=== PATIENT | female | born 1970 | race Caucasian/White ===

== ENCOUNTER 2019-04-25 14:48 | Outpatient (CLI) | payer BC, SELFPAY ==
--- NOTE | 2019-04-25 15:21 | XR_ITS ---
WS: [id number] CHEST 2 VIEWS HISTORY: COUGH COMPARISON: 01/13/2016 Lungs: Clear with no abnormality. No pleural effusion or pneumothorax. Cardiac size: Normal. Mediastinum/Aorta: Normal mediastinum. Bones: Normal. XR/XR chest 2V* [id number] IMPRESSION: Normal chest.
== END 2019-04-25 14:49 | disposition home or self-care (01) ==
LOC: RADWPI 14:54
PROVIDERS: Family Provider Family Medicine; PCP Family Medicine; Visit Provider Family Medicine
DX: R05 Cough (principal)
CPT/HCPCS: 71046

== ENCOUNTER 2019-10-26 06:50 | Outpatient (CLI) | payer BC, SELFPAY ==
--- NOTE | 2019-10-26 14:21 | PFTS_ITS ---
Date of Study:10/26/19 Date of Dictation: MECHANICS: Forced vital capacity (FVC) is normal. Forced expiratory volume in one second (FEV1) is mildly reduced. FEV1/FVC is reduced. FLOW VOLUME LOOP: Reduced flow at all lung volumes with scooping. LUNG VOLUMES: Not performed DIFFUSING CAPACITY FOR CARBON MONOXIDE: Not performed INTERPRETATION: The prebronchodilator spirometry is consistent with moderate obstruction. The post bronchodilator spirometry is consistent with moderate obstruction as well. There is a significant postbronchodilator response with a 35% increase in FEV1. This would be very consistent with a diagnosis of asthma. In the presence of significant history of smoking, there could be a component of asthma COPD overlap. MTDD
== END 2019-10-26 06:51 | disposition home or self-care (01) ==
PROVIDERS: PCP Family Medicine; Visit Provider Nurse Practitioner Family
DX: R05 Cough (principal); Z87.891 Personal history of nicotine dependence
CPT/HCPCS: 94060; J7611

== ENCOUNTER 2020-02-15 08:10 | Outpatient (CLI) | payer BC, SELFPAY ==
--- NOTE | 2020-02-15 08:18 | MM_ITS ---
WS: [id number] Bilateral screening digital mammogram, 02/15/2020 Clinical Data: SCREENING Comparison: 10/04/2018, 01/28/2017, 02/03/2013, 03/16/2006. Findings: The breast parenchymal pattern shows genus density No spiculated masses or clustered calcifications a re seen. There are no secondary signs of carcinoma. MM/[id number] Impression: 1. Negative bilateral mammogram unchanged. 2. Recommend annual screening mammograms. BIRADS: 1-Negative FOLLOW UP: 1 Year Follow-up The CAD blast furnace checker was used.
== END 2020-02-15 08:11 | disposition home or self-care (01) ==
LOC: RADSHAW 08:13
PROVIDERS: PCP Family Medicine; Visit Provider Nurse Practitioner Family
DX: Z12.31 Encounter for screening mammogram for malignant neoplasm of breast (principal)
CPT/HCPCS: 77067

== ENCOUNTER 2020-07-27 08:45 | Emergency (ER) | payer BC, SELFPAY ==
[2020-07-27 08:50] VITALS: BP 175/104; PULSE 95; RESP 18; TEMP 36.3; O2SAT 97; BMI 30.4
--- NOTE | 2020-07-27 08:59 | ECG_ITS ---
[facility] Test Date: 2020-07-27 Pat Name: Bri Funes Department: Room: Gender: Female City Administrator: : 1970 Requested By: Hans Blue Order Number: [id number] Hermann MD: Eli Woods M.D. Measurements Intervals [place] Rate: 94 P: 66 AR: 133 QRS: 21 QRSD: 109 T: 28 QT: 341 QTc: 427 Interpretive Statements SINUS RHYTHM POSSIBLE LEFT ATRIAL ENLARGEMENT [-0.1mV P WAVE IN V1/V2] POSSIBLE LEFT VENTRICULAR HYPERTROPHY [VOLTAGE CRITERIA PLUS LAE OR QRS WIDENING] NONSPECIFIC T-WAVE ABNORMALITY Compared to ECG 01/13/2016 19:31:44 No significant changes Electronically Signed On 07-28-2020 5:19:24 CDT by Eli Woods M.D. [email or web address]
--- NOTE | 2020-07-27 08:59 | XR_ITS ---
WS: [id number] Portable AP upright chest, 07/27/2020 Clinical Data: chest pain Comparison: PA and lateral chest, 04/25/2019. Findings: No nodules, masses or effusions are seen. The heart is normal. The pulmonary vascularity is not increased. No pneumonia or pneumothorax is seen. Monitor leads are on the chest wall. XR/XR chest 1V portable [id number] Impression: Negative chest.
[2020-07-27] MEDS: aspirin 81 mg Chew Tablet 324 MG PO (09:14)
[2020-07-27 09:17] LABS: Basophils # 0.1 10^3/uL (0.0-0.1); Basophils % 0.8 %; Eosinophils # 0.5 10^3/uL (0.0-0.8); Eosinophils % 6.2 %; Hematocrit 42.9 % (37.0-47.0); Hemoglobin 13.6 g/dL (11.5-15.3); Mean Corpuscular HGB Conc 31.7 g/dL (30.0-36.0); Mean Corpuscular Hemoglobin 27.6 pg (28.0-34.0); Mean Platelet Volume 9.6 fL (7.4-10.4); Monocytes # 0.7 10^3/uL (0.2-0.9); Monocytes % 9.4 %; Neutrophils # 4.11 10^3/uL (1.8-7.7); Neutrophils % 56.5 %; Nucleated Red Blood Cells % 0 %; Platelet Count 247 10^3/cmm (130-400); Red Blood Count 4.93 10^6/uL (4.1-5.3); Red Cell Distribution Width 12.4 % (12.1-15.1); White Blood Count 7.3 10^3/uL (4.0-10.0)
--- NOTE | 2020-07-27 09:27 | ED_ITS ---
HPI - Chest Pain General: Chief Complaint: Chest Pain Stated Complaint: CP Time Seen by Provider: 07/27/20 08:51 History of Present Illness: HPI narrative: 50-year-old female presents emergency room with mild chest pain began around 3:00 this morning. Left-sided chest pain stabbing and radiating into the scapular area. She had it earlier this week she was seen by her PCP and then a chiropractor. She was seen by the chiropractor about 4 to 5 days ago returned again 2 days ago. This morning she began having pain at about 3 AM with shortness of breath and diaphoresis she also checked her blood pressure and it was elevated. She took one of her mother's sublingual nitros with no relief. She did have a stress test about 2 years ago that was reported to her to be normal. The time I seen the patient she is essentially pain-free. MD complaint: chest pain and chest discomfort Onset (ago): day(s) Timing of current episode: episodic Prior episodes: Yes Onset: during rest Pain location: left chest Pain radiation: back Quality: heaviness Relieving factors: nothing Exacerbating factors: nothing Associated symptoms: Deny abdominal pain, diaphoresis, dyspnea, fever(s), leg edema, nausea, palpitations, sense of impending doom, syncope or vomiting Treatment prior to arrival: none Review of Systems Const: Denies: fever(s) or diaphoresis ENMT: Denies: throat pain, ear or mastoid pain, nasal discharge or nasal congestion Card: Denies: palpitations or syncope Resp: Denies: dyspnea GI: Denies: abdominal pain, nausea or vomiting : Denies: flank pain, difficulty voiding, dysuria, urinary frequency or urinary urgency Skin/Breast: Denies: rash or pruritus Physical Exam Const: COMMON NORMALS: no acute distress GENERAL APPEARANCE: cooperative and comfortable ORIENTATION/CONSCIOUSNESS: Yes awake, Yes oriented to person, Yes oriented to place and Yes oriented to time HENMT: COMMON NORMALS: normocephalic, atraumatic and hearing grossly normal bilaterally HEAD & SCALP: normocephalic and atraumatic Neck/C-Spine: COMMON NORMALS: no JVD Resp: COMMON NORMALS: normal respiratory effort, No retractions, No use of accessory muscles and clear to auscultation bilaterally AUSCULTATION: clear to auscultation bilaterally Cardio: COMMON NORMALS: no JVD, regular rate, regular rhythm and No murmurs present (Cardio) RATE: regular rate RHYTHM: regular rhythm GI: COMMON NORMALS: Soft to palpation and No hepatosplenomegaly present A USCULTATION: Yes normoactive bowel sounds PALPATION: Yes Soft to palpation, No Tenderness to palpation present (GI), No Guarding due to palpation present (GI) and Yes No hepatosplenomegaly present Extremity: COMMON NORMALS: normal to inspection, capillary refill normal, no clubbing, cyanosis or edema, no calf tenderness and no pedal edema Neuro: SENSORIUM/ORIENTATION: Yes oriented to person, Yes oriented to place and Yes oriented to time Skin: COMMON NORMALS: no rashes or lesions noted GENERAL SKIN EXAM: no rashes or lesions noted Course Vital Signs: Vital signs: Vital Signs Temperature 97.3 F L 07/27/20 08:50 Pulse Rate 88 07/27/20 12:21 Respiratory Rate 15 07/27/20 12:21 Blood Pressure 175/98 07/27/20 12:21 Pulse Oximetry 97 07/27/20 12:21 MDM - Chest Pain MDM Narrative: Medical decision making narrative: Tums completely resolved. We will go and discharge home or take aspirin daily return if she has further problems also started on amlodipine for pretension. radiology services manager will make arrangements for the patient to have a treadmill stress test Lab Data: Labs: Lab Results 07/27/20 07/27/20 07/27/20 Range/Units 09:11 09:11 09:11 WBC 7.3 (4.0-10.0) 10^3/ uL RBC 4.93 (4.1-5.3) 10^6/u L Hgb 13.6 (11.5-15.3) g/dL Hct 42.9 (37.0-47.0) % MCV 87.0 (81-99) fL MCH 27.6 L (28.0-34.0) pg MCHC 31.7 (30.0-36.0) g/dL RDW 12.4 (12.1-15.1) % Plt Count 247 (130-400) 10^3/c mm MPV 9.6 (7.4-10.4) fL Neut % (Auto) 56.5 % Lymph % (Auto) 27.0 % [place] % (Auto) 9.4 % Eos % (Auto) 6.2 % Baso % (Auto) 0.8 % Neut # (Auto) 4.11 (1.8-7.7) 10^3/u L Lymph # (Auto) 2.0 (0.8-4.8) 10^3/u L [place] # (Auto) 0.7 (0.2-0.9) 10^3/u L Eos # (Auto) 0.5 (0.0-0.8) 10^3/u L Baso # (Auto) 0.1 (0.0-0.1) 10^3/u L Nucleated RBC % (a uto) 0 % Nucleated RBCs # 0.0 /100WBC Sodium 139 (136-145) mmol/L Potassium 4.0 (3.5-5.1) mmol/L Chloride 103 (98-107) mmol/L Carbon Dioxide 26 (22-29) mmol/L Anion Gap 14.0 (5-19) BUN 15 (6-20) mg/dL Creatinine 0.7 (0.5-0.9) mg/dL GFR Calculation 88.6 L (90-130) mL/min Glucose 97 (65-115) mg/dL Calculated Osmolal ity 289 (285-295) mOsm/k g Calcium 9.3 (8.5-10.5) mg/dL Total Bilirubin 0.2 (0.15-1.2) mg/dL AST 15 (0-32) U/L ALT 18 (0-33) U/L Alkaline Phosphata se 98 (35-105) IU/L Troponin T Baselin e 6 (0-10) ng/L Troponin T 120 Min habematolel (0-10) ng/L Delta Troponin T (0-10) ABS# Total Protein 7.4 (6.6-8.7) g/dL Albumin 4.4 (3.5-5.2) g/dL Globulin 3.0 (1.3-4.6) g/dL 07/27/20 Range/Units 10:56 WBC (4.0-10.0) 10^3/ uL RBC (4.1-5.3) 10^6/u L Hgb (11.5-15.3) g/dL Hct (37.0-47.0) % MCV (81-99) fL MCH (28.0-34.0) pg MCHC (30.0-36.0) g/dL RDW (12.1-15.1) % Plt Count (130-400) 10^3/c mm MPV (7.4-10.4) fL Neut % (Auto) % Lymph % (Auto) % [place] % (Auto) % Eos % (Auto) % Baso % (Auto) % Neut # (Auto) (1.8-7.7) 10^3/u L Lymph # (Auto) (0.8-4.8) 10^3/u L [place] # (Auto) (0.2-0.9) 10^3/u L Eos # (Auto) (0.0-0.8) 10^3/u L Baso # (Auto) (0.0-0.1) 10^3/u L Nucleated RBC % (a uto) % Nucleated RBCs # /100WBC Sodium (136-145) mmol/L Potassium (3.5-5.1) mmol/L Chloride (98-107) mmol/L Carbon Dioxide (22-29) mmol/L Anion Gap (5-19) BUN (6-20) mg/dL Creatinine (0.5-0.9) mg/dL GFR Calculation (90-130) mL/min Glucose (65-115) mg/dL Calculated Osmolal ity (285-295) mOsm/k g Calcium (8.5-10.5) mg/dL Total Bilirubin (0.15-1.2) mg/dL AST (0-32) U/L ALT (0-33) U/L Alkaline Phosphata se (35-105) IU/L Troponin T Baselin e (0-10) ng/L Troponin T 120 Min habematolel 6.00 (0-10) ng/L Delta Troponin T 0 (0-10) ABS# Total Protein (6.6-8.7) g/dL Albumin (3.5-5.2) g/dL Globulin (1.3-4.6) g/dL Discharge Plan Discharge Patient Disposition: Home Clinical Impression: Atypical chest pain, HTN (hypertension) Condition: Stable Prescriptions: New hydrocodone-acetaminophen 5-325 mg tablet 1 tab PO Q6H PRN (Reason: pain) Qty: 10 RF: 0 aspirin 81 mg tablet,delayed release (DR/EC) 81 mg PO DAILY Qty: 30 RF: 0 amlodipine 5 mg tablet 2.5 mg PO DAILY Qty: 14 RF: 0 No Action Percocet 7.5-325 mg tablet 1 tab PO Q6H PRN (Reason: pain) Qty: 10 RF: 0 Medrol (Ehsan) 4 mg tablets,dose pack See Rx Instructions .ROUTE .COMPLEX Qty: 21 RF: 0 Discharge Orders: Discharge ED (Routine); Ordered 07/27/20 Ordered By: Hans Connor Referrals: Dayron Crane DO [Primary Care Provider] - Discharge Diet: Usual diet Discharge Activity: Limit activity as instructed Patient Instructions: Opioid Safety Activity Restrictions/Additional Instructions: Case management will call to make arrangements for a cardiac stress test. Coding Level of Care Code ED Display Designer for Taras Fwd Exam Comprehensive
[2020-07-27 09:35] LABS: Alanine Aminotransferase 18 U/L (0-33); Albumin Level 4.4 g/dL (3.5-5.2); Alkaline Phosphatase 98 IU/L (35-105); Aspartate Amino Transferase 15 U/L (0-32); Blood Urea Nitrogen 15 mg/dL (6-20); Calcium 9.3 mg/dL (8.5-10.5); Carbon Dioxide 26 mmol/L (22-29); Chloride 103 mmol/L (98-107); Creatinine Clr Calc Pharmacy 113.2734; Glomerular Filtration Rate 88.6 mL/min (90-130); Glucose 97 mg/dL (65-115); Osmolality Calculated 289 mOsm/kg (285-295); Sodium 139 mmol/L (136-145); Total Bilirubin 0.2 mg/dL (0.15-1.2); Total Protein 7.4 g/dL (6.6-8.7)
[2020-07-27 09:37] LABS: Troponin(5th) Baseline 6 ng/L (0-10)
--- NOTE | 2020-07-27 10:59 | ECG_ITS ---
[facility] Test Date: 2020-07-27 Pat Name: Bri Funes Department: Room: Gender: Female Airway Controller: : 1970 Requested By: Hans Blue Order Number: [id number] Hermann MD: Eli Woods M.D. Measurements Intervals [place] Rate: 81 P: 61 LA: 138 QRS: 10 QRSD: 106 T: 45 QT: 380 QTc: 443 Interpretive Statements SINUS RHYTHM MODERATE INTRAVENTRICULAR CONDUCTION DELAY [105+ ms QRS DURATION, 80+ ms Q/S IN V1/V2, NO Q AND 60+ ms R IN I/aVL/V5/V6] MINIMAL VOLTAGE CRITERIA FOR LVH, CONSIDER NORMAL VARIANT [MEETS CRITERIA IN ONE OF: R(aVL), S(V1), R(V5), R(V5/V6)+S(V1)] NONSPECIFIC T-WAVE ABNORMALITY Compared to ECG 07/27/2020 08:55:56 Intraventricular conduction delay now present T-wave abnormality still present Electronically Signed On 07-28-2020 5:25:02 CDT by Eli Woods M.D. [email or web address]
[2020-07-27 11:32] LABS: Troponin 5 2HR Delta 0 ABS# (0-10)
[2020-07-27 11:37] VITALS: BP 175/98; PULSE 87; RESP 15; O2SAT 95
[2020-07-27 12:21] VITALS: BP 175/98; PULSE 88; RESP 15; O2SAT 97
== END 2020-07-27 12:22 | disposition home or self-care (01) ==
PROVIDERS: Emergency Provider Family Medicine; PCP Internal Medicine
DX: R07.89 Other chest pain (principal); I10 Essential (primary) hypertension
CPT/HCPCS: 71045; 80053; 84484; 85025; 93005; 99283

== ENCOUNTER 2020-07-29 00:38 | Emergency (ER) | payer BC, SELFPAY ==
[2020-07-29] VITALS (7 sets, daily range): BP systolic 165–177; BP diastolic 105–119; PULSE 72–98; RESP 15–17; TEMP 36.5; O2SAT 92–97; BMI 32.1
--- NOTE | 2020-07-29 01:24 | CTR_ITS ---
PROCEDURE INFORMATION: Exam: CT Cervical Spine Without Contrast Exam date and time: 07/29/2020 1:32 AM Age: 50 years old Clinical indication: Radicular pain (radiculopathy); Cervicothoracic region; Additional info: Left radicular pain TECHNIQUE: Imaging protocol: Computed tomography images of the cervical spine without contrast. Radiation optimization: All CT scans at this facility use at least one of these dose optimization techniques: automated exposure control; mA and/or kV adjustment per patient size (includes targeted exams where dose is matched to clinical indication); or iterative reconstruction. COMPARISON: No relevant prior studies available. RADIATION DOSE METRICS: Total DLP (mGy-cm): 907.75 FINDINGS: Vertebrae: The dens is intact. The lateral masses of C1 are symmetric. There is normal vertebral body alignment. There are normal vertebral body heights. No fracture. C2-C3: Small central disc protrusion with minimal canal stenosis but no foraminal stenosis. C3-C4: Broad-based disc protrusion and osteophyte formation result in mild canal stenosis and mild right neural foraminal stenosis. C4-C5: Minimal disc protrusion without significant canal or foraminal stenosis. C5-C6: Small central disc protrusion with minimal canal stenosis. No foraminal stenosis. C6-C7: Broad-based disc protrusion plus facet and endplate hypertrophy result in mild canal stenosis with mild bilateral foraminal narrowing. C7-T1: No canal stenosis. Facet hypertrophy mildly narrows the left neural foramen. Soft tissues: Unremarkable. Prevertebral Space: Atlantodental interval and prevertebral soft tissues are normal. Lungs: Lung apices are normal. Other findings: Craniocervical articulation is normal. CT/CT cervical spin wo con* [id number] IMPRESSION: Mild degenerative disc disease. No fracture. Radiation Dose CTDIVOL = (mGy): DLP = 907.75 (mGy-cm)
--- NOTE | 2020-07-29 01:24 | XRR_ITS ---
PROCEDURE INFORMATION: Exam: XR Left Shoulder Exam date and time: 07/29/2020 1:32 AM Age: 50 years old Clinical indication: Pain; Shoulder; Left; Additional info: L shoulder pain x 1 week TECHNIQUE: Imaging protocol: XR Left shoulder. Views: 2 or more views. COMPARISON: US SoftTissue/Extrem t [id number] 08/19/2017 3:27 PM FINDINGS: Bones/joints: No fracture. No dislocation. The acromioclavicular joint and glenohumeral joints are within normal limits. The acromiohumeral interval is normal. Soft tissues: No acute soft tissue abnormality. XR/XR shoulder LT min 2V* [id number] IMPRESSION: No acute osseous abnormality.
[2020-07-29] MEDS: ondansetron 2 mg/ML SDV 2 mL 4 MG IVP (01:51)
[2020-07-29] MEDS: HYDROmorphone 1 mg/mL INJ 1 mL IVP (01:53)
[2020-07-29] MEDS: ketorolac 30 mg/mL INJ IVP (01:56)
[2020-07-29 02:20] LABS: D Dimer 0.47 ug/mIFEU (0-0.59)
[2020-07-29] MEDS: dexamethasone 4 mg/mL INJ 8 MG IVP (03:43)
[2020-07-29] MEDS: HYDROmorphone 1 mg/mL INJ 1 mL 0.5 MG IVP (03:45)
--- NOTE | 2020-07-29 04:40 | W.ED.EXTPRO ---
HPI - Extremity Problem General: Chief complaint: Extremity Problem,Nontraumatic Stated complaint: left shoulder pain Time Seen by Provider: 07/29/20 01:05 History of Present Illness: HPI Narrative: 50-year-old female who was seen 2 days ago with left shoulder and left posterior chest pain. She was diagnosed with atypical chest pain after cardiac work-up which was negative. She continues to have left-sided shoulder pain, scapular pain, and left-sided pain at the base of her neck. She is in tears on exam. He states her blood pressure has been high, and is usually not high. She notes there is increased pain with neck movement. Associated symptoms: Deny chest pain or fever(s) Review of Systems Const: Denies: fever(s) or chills Card: Denies: chest pain or palpitations Resp: Denies: dyspnea, productive cough or non-productive cough GI: Denies: abdominal pain or vomiting Neuro: Denies: numbness in extremities Physical Exam Const: COMMON NORMALS: patient oriented x3 and alert GENERAL APPEARANCE: ill appearing and other (in pain) Chest: COMMONS NORMALS: normal inspection of the chest Resp: COMMON NORMALS: normal respiratory effort, No use of accessory muscles and clear to auscultation bilaterally AUSCULTATION: clear to auscultation bilaterally Cardio: COMMON NORMALS: regular rate and regular rhythm RATE: regular rate RHYTHM: regular rhythm Extremity: COMMON NORMALS: normal to inspection NARRATIVE EXTREMITY EXAM: Exam the left shoulder reveals tenderness over the rotator cuff footprint. There is some suprascapular notch tenderness as well. No deformity. Range of motion is intact, but painful. There is some cervical paraspinal tenderness. No midline tenderness. Spurling's test is negative. Neuro: COMMON NORMALS: patient oriented x3 SENSORIUM/ORIENTATION: Yes alert Skin: COMMON NORMALS: no rashes or lesions noted GENERAL SKIN EXAM: no rashes or lesions noted Course Vital Signs: Vital signs: Vital Signs Temperature 97.7 F 07/29/20 04:00 Pulse Rate 72 07/29/20 04:00 Respiratory Rate 15 07/29/20 04:00 Blood Pressure 177/109 07/29/20 04:00 Pulse Oximetry 95 07/29/20 04:00 MDM - Extremity (Nontraumatic) MDM Narrative: Medical decision making narrative: Patient had excellent pain relief with Dilaudid and Toradol. CT shows a broad-based disc protrusion plus facet hypertrophy at C6-C7 with some foraminal narrowing. Left shoulder x-ray is negative. This may be a radiculopathy. It could be a suprascapular nerve entrapment, although there is some radicular pain into the upper extremity as well. D-dimer is drawn and is negative. This would speak against pulmonary embolism and carotid or vertebral dissection. Lab Data: Labs: Lab Results 07/29/20 Range/Units 01:58 D-Dimer 0.47 (0-0.59) ug/mIFE U Discharge Plan Discharge Patient Disposition: Home Clinical Impression: Neuritis, Acute pain of right shoulder Condition: Stable Prescriptions: New Percocet 7.5-325 mg tablet 1 tab PO Q6H PRN (Reason: pain) Qty: 10 RF: 0 Medrol (Ehsan) 4 mg tablets,dose pack See Rx Instructions .ROUTE .COMPLEX Qty: 21 RF: 0 No Action hydrocodone-acetaminophen 5-325 mg tablet 1 tab PO Q6H PRN (Reason: pain) Qty: 10 RF: 0 aspirin 81 mg tablet,delayed release (DR/EC) 81 mg PO DAILY Qty: 30 RF: 0 amlodipine 5 mg tablet 2.5 mg PO DAILY Qty: 14 RF: 0 Discharge Orders: Discharge ED (Routine); Ordered 07/29/20 Ordered By: Winston Pacheco Referrals: Dayron Crane DO [Primary Care Provider] - 1-3 days Patient Instructions: Shoulder Sprain (ED), Cervical Radiculopathy (ED), Opioid Safety Activity Restrictions/Additional Instructions: Return for fever, worsening pain despite treatment, shortness of breath, any other concerning symptoms. Coding Level of Care Code ED Robotics Technologist for Taras Iqbal
== END 2020-07-29 04:05 | disposition home or self-care (01) ==
PROVIDERS: Emergency Provider Emergency Medicine; PCP Internal Medicine
DX: M79.2 Neuralgia and neuritis, unspecified (principal); Z79.82 Long term (current) use of aspirin; M25.511 Pain in right shoulder
CPT/HCPCS: 72125; 73030; 85378; 96374; 96375; 96376; 99284; J1100; J1170; J1885; J2405

== ENCOUNTER → 2021-01-14 00:01 | Outpatient (BNVA) | payer BC, SELFPAY | PROVIDERS: PCP Internal Medicine; Visit Provider Obstetrics & Gynecology | DX: R32 Unspecified urinary incontinence (principal) | CPT/HCPCS: 87086 ==

== ENCOUNTER 2021-02-06 10:44 | Outpatient (CLI) | payer BC, SELFPAY ==
--- NOTE | 2021-02-06 10:50 | CT_ITS ---
WS: [id number] LDCT LUNG CANCER SCREENING TECHNIQUE: Noncontrast CT of the chest with coronal and sagittal reformatted images. CLINICAL INFORMATION: HX OF TOBACCO USE COMPARISON: None. DLP: 51.02 mGy.cm DIvol: 1.[address] scans at [facility] use at least one of these dose optimization techniques: automat ed exposure control; mA and/or kV adjustment per patient size (includes targeted exams where dose is matched to clinical indication); or iterative reconstruction. FINDINGS: No acute pulmonary infiltrates. No focal pneumonia or pleural fluid. No suspicious pulmonary parenchy mal opacities. No mediastinal or hilar lymphadenopathy. Normal GE junction. Adrenal glands appear normal. No axillary lymphadenopathy. Normal thoracic spine. CT/CT lung screening [id number] IMPRESSION: LUNG-RADS: 1-Negative FOLLOW UP: 12 Month: Continue annual screening with LDCT
== END 2021-02-06 10:45 | disposition home or self-care (01) ==
PROVIDERS: PCP Internal Medicine; Visit Provider Internal Medicine
DX: Z12.2 Encounter for screening for malignant neoplasm of respiratory organs (principal); Z87.891 Personal history of nicotine dependence
CPT/HCPCS: 71271

== ENCOUNTER → 2021-02-16 14:33 | Outpatient (BNVA) | payer BC, SELFPAY | PROVIDERS: PCP Internal Medicine; Visit Provider Registered Nurse Neonatal Intensive Care | DX: Z20.822 Contact with and (suspected) exposure to COVID-19 (principal); N39.3 Stress incontinence (female) (male); N81.10 Cystocele, unspecified; N81.6 Rectocele | CPT/HCPCS: 87635 ==

== ENCOUNTER 2021-02-20 10:11 | Observation (INO) | payer BC, SELFPAY ==
[2021-02-18 13:36] VITALS: BMI 31.9
--- NOTE | 2021-02-18 14:36 | P.ANESASSM_ITS ---
Pre-Anesthetic Assessment Pre-Anesthetic Assessment: Height/Weight: Height 1.73 m Weight 95.254 kg Proposed Procedure: Operation Date: 02/20/21 08:25 Proposed Procedures p Anterior Repair Anterior Colporrhaphy [id number] 25860 N81.10 N81.6 N39.3(Not Applicable) - MD lizz José Posterior Repair(Not Applicable) - Vini Erickson MD s Sling(Not Applicable) - Vini Erickson MD Was Beta Vannessa taken within 24 hours: N/A Was Clonidine taken within 24 hours: N/A Social: Social History: No alcohol and No tobacco Exam: Pre-Anes Outpt Exam: alert, oriented x 3, clear to auscultation bi laterally and regular rate & rhythm Airway: Submandibular: WNL Cervical ROM: WNL MP: 2 Dentition: Full CV/HEM: CV/HEM: HTN Metabolic: Metabolic: Morbid obesity Anesthetic Plan: ASA status: 2 Anesthesia: General Risk of > 500 ml blood loss (7ml/kg in children): No PFSH Anesthesia PFSH: Medical History [place]-Walker grade 2 cystocele Urinary, incontinence, stress female Family History Mother Cancer Breast cancer Diabetes Hyperlipidemia Hypertension Lung disease COPD Grandmother Cancer Maternal - Colon cancer Hypertension Grandfather Cancer Maternal - Prostate cancer CAD (coronary artery disease) Paternal Hypertension Lung disease COPD Stroke Maternal Father Hypertension Lung disease COPD Denies family history of Clotting disorder Dementia Psychiatric illness Chronic kidney disease (CKD) Suicide Anesthesia complication Bleeding disorder Female Reproductive History: Date of last menstrual period: 02/15/14 Data Anesthesia Cardiac Studies: No Data to Display
[2021-02-20] VITALS (11 sets, daily range): BP systolic 112–140; BP diastolic 68–88; PULSE 63–89; RESP 11–18; TEMP 36.2–36.8; O2SAT 91–97
[2021-02-20 07:50] LABS: Add Urine Microscopic? NO; Charge for UA Resulting for Rev
[2021-02-20] MEDS: scopolamine 1.5 Patch 1 PATCH TRANSDERMA (07:53)
[2021-02-20] MEDS: sodium chloride 0.9% 500 ML IV (07:54)
--- NOTE | 2021-02-20 07:57 | P.ANESUD_ITS ---
Pre-Anesthetic Update Pre-Anesthetic Assessment: Date of Surgery/Procedure: 02/20/21 Preop Mercedes gnosis: Cystocele stage 2, rectocele, stress urinary incontinence Proposed Procedure: Operation Date: 02/20/21 08:25 Proposed Procedures p Anterior Repair Anterior Colporrhaphy [id number] 51810 N81.10 N81.6 N39.3(Not Applicable) - Vini Erickson MD s Posterior Repair(Not Applicable) - Vini Erickson MD s Sling(Not Applicable) - Vini Erickson MD Any changes to Pre-Anesthetic Assessment?: No Vitals: Temperature 98.1 F 02/20/21 07:32 Temperature Source Temporal Artery S can 02/20/21 07:32 Pulse Rate 86 02/20/21 07:32 Respiratory Rate 18 02/20/21 07:32 Blood Pressure 140/88 02/20/21 07:32 Blood Pressure Nicky n 105 02/20/21 07:32 Pulse Oximetry 96 02/20/21 07:32 Oxygen Delivery Me thod 02/20/21 07:32 Exam: Pre-Anes Outpt Exam: alert, oriented x 3, clear to auscultation bilaterally and regular rate & rhythm Cardiac Studies: No Data to Display
[2021-02-20 08:09] LABS: Bilirubin Urine Neg (Negative); Blood Urine Neg (Negative); Glucose Urine UA Norm (Normal); Ketones Urine Negative (Negative); Leukocyte Esterase Urine Negative (Negative); Nitrate Urine Negative (Negative); Protein Urine Neg (Negative); Specific Gravity, Urine 1.015 (1.005-1.030); Urine Appearance Clear (CLEAR); Urine Color Yellow (Yellow); Urobilinogen Urine Norm (Negative); pH Urine 5 (5-7)
[2021-02-20] MEDS: sodium chloride 0.9% 1,000 ML 30 ML IV (08:13)
[2021-02-20 08:21] LABS: Alanine Aminotransferase 11 U/L (0-33); Albumin Level 4.2 g/dL (3.5-5.2); Alkaline Phosphatase 98 IU/L (35-105); Anion Gap 17.1 (5-19); Aspartate Amino Transferase 11 U/L (0-32); Basophils # 0.1 10^3/uL (0.0-0.1); Basophils % 0.8 %; Blood Urea Nitrogen 13 mg/dL (6-20); Calcium 8.8 mg/dL (8.5-10.5); Carbon Dioxide 22 mmol/L (22-29); Chloride 106 mmol/L (98-107); Eosinophils # 0.4 10^3/uL (0.0-0.8); Eosinophils % 5.6 %; Glomerular Filtration Rate 88.2 mL/min (90-130); Glucose 96 mg/dL (65-115); Hematocrit 40.5 % (37.0-47.0); Lymphocytes # 2.1 10^3/uL (0.8-4.8); Lymphocytes % 28.9 %; Mean Corpuscular HGB Conc 32.1 g/dL (30.0-36.0); Mean Corpuscular Volume 87.3 fl (81-99); Mean Platelet Volume 10.5 fL (7.4-10.4); Monocytes # 0.6 10^3/uL (0.2-0.9); Neutrophils # 4.14 10^3/uL (1.8-7.7); Neutrophils % 56.4 %; Nucleated Red Blood Cells % 0 %; Osmolality Calculated 292 mOsm/kg (285-295); Platelet Count 247 10^3/cmm (130-400); Potassium 4.1 mmol/L (3.5-5.1); Red Blood Count 4.64 10^6/uL (4.1-5.3); Red Cell Distribution Width 12.6 % (12.1-15.1); Sodium 141 mmol/L (136-145); Total Bilirubin 0.4 mg/dL (0.15-1.2); Total Protein 7.2 g/dL (6.6-8.7); White Blood Count 7.3 10^3/uL (4.0-10.0)
--- NOTE | 2021-02-20 08:26 | W.PM.OPSUD ---
Surgery/Procedure H&P Update DATE OF PROCEDURE: February 20, 2021 DATE H&P PERFORMED: 02/18/21 H&P UPDATE INFORMATION: I have reviewed H&P completed within last 30 days, I have examined patient prior to procedure and No changes to prior documentation PREOP DIAGNOSIS: Cystocele stage 2, rectocele, stress urinary incontinence PLANNED PROCEDURE: Operation Date: 02/20/21 08:25 Proposed Procedures p Anterior Repair Anterior Colporrhaphy [id number] 21292 N81.10 N81.6 N39.3(Not Applicable) - Vini Erickson MD s Posterior Repair(Not Applicable) - Vini Erickson MD s Sling(Not Applicable) - Vini Erickson MD
[2021-02-20] MEDS: estrogens Conjugated Cream 30 gm 1 APPLIC VAGINAL (10:09)
--- NOTE | 2021-02-20 10:40 | P.OP_ITS ---
Operative Report Date of procedure: February 20, 2021 Pre-op Diagnosis: Cystocele stage 2, rectocele, stress urinary incontinence Post-op diagnosis: same Procedure Done: Anterior colporrhaphy augmented with allograft. Single incision mid urethral sling. Posterior colporrhaphy. Cystoscopy Implants: Coloplast \Altis single incision sling Pathology: none sent Surgeon: Vini Erickson MD Anesthesia: General Estimated blood loss (mL): 100 IV fluids (mL): 800 Urine output (mL): 200 Findings: None Condition: stable Disposition: PACU Procedure: After obtaining informed consent, the patient was taken to the operating room and placed in the supine position, given general anesthesia, and prepped and draped in sterile fashion. The abdomen, vulva and vagina were prepped and draped in a sterile manner. A time out procedure was performed. A vertical midline incision was made beneath the midurethra, nearly 1.5 cm length. Careful submucosal dissection was performed bilaterally up to the interior portion of the inferior pubic ramus. The insertion of adductor longus tendon on the patient?s pubic ramus was identified as reference land vero. Palpated the notch along the internal edge of ischiopubic ramus where the adductor longus tendon and the inferior pubic ramus meet. The Altis single incision sling (SIS) was selected. Then the needle of the SIS inserted aiming at the location of this notch. One of the integrated self-fixating tips place onto the needle by sliding it over the end of the needle. The needle/sling assembly was inserted toward the location of identified reference notch making sure that the flat of the handle is perpendicular to the desired path. The needle was tracked along the posterior surface of the ischiopubic ramus until the midline vero on the mesh is approximately at the midline position under the urethra. The needle was removed and the same was repeated on the contralateral side until the appropriate sling tension under the urethra was achieved ensuring that the mesh lays flat. The needle was removed and vaginal incision was closed in a running interlocking fashion with 2-0 Vicryl. The vaginal mucosa was then injected in the midline with normal saline. The vaginal mucosa was scored in the midline with the Bovie approximately 1 cm medi al to the urethral meatus to 1 cm distal to the vaginal cuff. This vaginal mucosa was then undermined and then incised in the midline with the Metzenbaum scissors. The lateral aspects of the vaginal mucosa were then grasped with the Allis clamps and the vaginal mucosa was then dissected off the underlying fascia with the Metzenbaum scissors. Again, there was noted to be quite a bit of oozing at the incision, which was controlled with cautery. After adequate dissection was performed, bilaterally. A Coloplast allograft was modified at time of application to fit spacea, 3x3 cm piece . The Coloplast allograft placed in front of cystocele and suture is placed at distal end of graft and placed towards vaginal cuff. Final suture is placed on proximal portion of the graft to complete the placement overlying the bladder. Then Interrupted vertical mattress sutures of 0 Vicryl were used to elevate the cystocele superiorly. The excessive vaginal mucosa was then trimmed with the Metzenbaum scissors and the vaginal mucosa was then reapproximated in the running interlocking fashion with 2-0 Vicryl. A posterior repair was performed next. An incision was made across the introitus. Metzenbaum scissors were used to tunnel beneath posterior vaginal mucosa until the apex of the rectocele bulge was reached. At this point, the rectum was from the posterior vaginal mucosa using sharp and blunt dissection, and the rectal bulge imbricated in the midline with interrupted sutures of 2-0 vicryl suture. Levator ani muscles on either side were approximated in the midline with interrupted 0 Vicryl sutures. Excess posterior vaginal mucosa was excised, and the vaginal episiotomy was repaired by approximating the posterior vaginal mucosa with a suture of Vicryl #0. Then the Puente catheter was removed and cystoscope was inserted. The bladder was filled with sterile water. Complete evaluation of the bladder mucosa was performed noting no lacerations, dimpling, tears, bleeding of the mucosa or muscular layers. Both ureteral orifices were identified. Prompt excretion of urine from both ureteral orifices was noted. Cystoscope was withdrawn. The Puente catheter was replaced. Excellent hemostasis was obtained. A vaginal pack is placed overnight as postoperative support for the vaginal tissues after graft placement and closure of vaginal incisions. Sponge, lap, needle, and instrument counts were correct times three. The patient was taken to the recovery room, awake and in stable condition.
--- NOTE | 2021-02-20 11:14 | PC.NURSE ---
Patient arrived from PACU at this time
[2021-02-20] MEDS: dextrose 5%-lactated ringers 1,000 ML 125 ML IV ×2 (11:49→18:29)
[2021-02-20] MEDS: acetaminophen 325 mg Tablet 650 MG PO (12:29)
--- NOTE | 2021-02-20 14:51 | ANE.PACU2 ---
Inpatient post-anesthesia follow up: Airway intact: Yes Vital signs: Temperature 97.6 F Pulse Rate 63 Respiratory Rate 18 Blood Pressure 123/78 Pulse Oximetry 96 Oxygen Delivery Me thod Room Air Oxygen Flow Rate Fraction of Inspir ed Oxygen Hydration adequate: Yes Nausea and vomiting: No Pain level: 2 Mental status: Baseline
[2021-02-20] MEDS: ketorolac 30 mg/mL INJ IVP ×2 (15:05→21:29)
--- NOTE | 2021-02-20 17:23 | PC.NURSE ---
Patient stood up from chair to ambulate to bathroom and noted to have moderate amount of blue tinged fluid come out from around her perineum. Fluid examined and noted to be urine. Patient then to bathroom and stood up and noted to have same thing happen again.
[2021-02-20] MEDS: docusate sodium 100 mg Capsule PO (18:29)
[2021-02-21] MEDS: HYDROcodone-acetaminophen 5-325 mg Tablet PO (04:24)
[2021-02-21 04:36] VITALS: BP 118/74; PULSE 63; RESP 14; O2SAT 95
[2021-02-21 04:55] LABS: Hematocrit 32.7 % (37.0-47.0); Hemoglobin 10.6 g/dL (11.5-15.3); Mean Corpuscular HGB Conc 32.4 g/dL (30.0-36.0); Mean Corpuscular Hemoglobin 28.6 pg (28.0-34.0); Mean Corpuscular Volume 88.4 fl (81-99); Mean Platelet Volume 10.2 fL (7.4-10.4); Platelet Count 205 10^3/cmm (130-400); Red Cell Distribution Width 12.6 % (12.1-15.1)
--- NOTE | 2021-02-21 06:55 | PC.NURSE ---
Post void residual completed at 0600. Pt voided 400ml. Residual was 30ml per bladder scan
--- NOTE | 2021-02-21 09:40 | P.DS_ITS ---
Discharge Providers CLINICAL INTERVIEWER Date of Admission: 02/20/21 10:11 Date of Discharge: 02/21/21 Attending Provider at Admission: Vini Erickson MD Attending Provider at Discharge: Vini Erickson MD Primary Care Provider: Dayron Crane DO Reason for Visit Reason for Visit: anterior colporrhapy Hospital Course Hospital Course .: 54-year-old cystocele rectocele associated with urinary incontinence. Was admitted for planned anterior colporrhaphy augmented with allograft, single incision mid urethral sling, and posterior colporrhaphy. The procedures were performed without complication. Overnight observation was uneventful. She is afebrile and hemodynamically stable postoperative day 1. Tolerating diet well. Ambulating without difficulty. Pain well under control. She voided 300 mL and PVR was 30 mL. Physical Exam Narrative: EXAM NARRATIVE: GA: Alert and oriented ?3. HEENT: WNL. Heart: Regular rate and rhythm. Lungs: Clear to auscultation bilaterally. Abdomen: Bowel sounds present, nontender. ECHOCARDIOGRAPHY RADIOLOGY TECHNOLOGIST: Spotting. Extremities: No edema, no cyanosis, no calves pain. Urinary Catheter Management^: Latex Free: Cath Placed During This Visit: yes, but has since been removed by the nurse Reason for Continuing Indwelling Catheter: Decision to DC Catheter Urinary Catheter Date of Insertion: 02/20/21 Urinary Catheter Time of Insertion: 09:00 Date Urinary Catheter Removed: 02/21/21 Time Urinary Catheter Discontinued: 05:05 History History History 10 Term 6 Miscarriages/Ectopic 4 0 Living Children 6 Discharge Data Data Completed and Pending: Pending at discharge Category Date Time Status ES surgery / GI i mages Routine Exams 02/20/21 08:26 Taken Labs from last 24 hours 02/21/21 04:40 WBC 14.0 H RBC 3.70 L Hgb 10.6 L Hct 32.7 L MCV 88.4 MCH 28.6 MCHC 32.4 RDW 12.6 Plt Count 205 MPV 10.2 Vitals: Last Vital Signs Temp 98.2 F 02/20/21 21:38 Pulse 63 02/21/21 04:36 Resp 14 02/21/21 04:36 BP 118/74 02/21/21 04:36 Pulse Ox 95 02/21/21 04:36 Discharge Plan Discharge Patient Disposition: Home Condition: Stable Prescriptions: New ibuprofen 800 mg tablet 800 mg PO TID PRN (Reason: pain) Qty: 60 RF: 0 Colace 100 mg capsule 100 mg PO BID Qty: 30 RF: 0 acetaminophen 325 mg capsule 325 mg PO Q4H PRN (Reason: fever or pain) Qty: 60 RF: 0 Iron (ferrous sulfate) 325 mg (65 mg iron) tablet 325 mg PO BID Qty: 60 RF: 0 hydrocodone-acetaminophen 5-325 mg tablet 1 tab PO Q4H PRN (Reason: pain) Qty: 20 RF: 0 Continued amlodipine 5 mg tablet 5 mg PO DAILY RF: 0 Discharge Orders: Discharge Order (Routine); Ordered 02/21/21 Ordered By: Vini Erickson Referrals: Vini Erickson MD [Physician] - 2 weeks Discharge Diet: GI Soft and Soft Mechanical Discharge Activity: Increase activity as tolerated Patient Instructions: Opioid Safety Activity Restrictions/Additional Instructions: 1. Please call [facility] clinic on next working day to make your post-operative appointment in 2 weeks. 2. Please stay home until you come back to the clinic on first post-operative check up. 3. Please follow instructions on your medications CAREFULLY. 4. If you have abdominal incision, do not cover it unless dressing is necessary because of drainage. OK to shower, but avoid bath. Leave steri-strips until they fall off. If they are still on one week after surgery, you may remove them. 5. If you had vaginal surgery or vaginal repair, Dr. Erickson may instruct you to take SITZ bath. 6. Yellow, blood tinged odorous vaginal discharge is usually normal after hysterectomy or vaginal surgeries. 7. No sexual intercourse, tampons, or douches until you are completely released from the post-operative care. 8. Avoid constipation by eating right and maybe using some Metamucil or Milk of Magnesia. 9. All prescription refills are given during the working hours. Please do no wait till it runs out. Call the clinic at [phone] before your medication runs out. The clinic will get in touch with your doctor to prescribe medications if necessary. 10. Please remain within 40 mile radius from our hospital because emergencies do happen now and then during the post-operative period. 11. If you have stairs at home, take one step at a time slowly and minimize the number of trips. It helps to stay in one floor for the next few days. No lifting except what you can lift by one hand until you are released from the post-operative care. 12. Driving is discouraged until you are well healed if you a major surgery. It may be 3-4 weeks before you feel strong enough to drive. You should be able to turn and look through the rear window without pain and you should be able to push the brake pedal very hard without pain before you drive. No fast rules, but SAFETY should be your primary concern. DO NOT drive if you are on sedating medications such as narcotics (hydrocodone). 13. Call the clinic (during working hours) to make urgent appointment or go to the Emergency room, if any of the following occurs: i. Vaginal bleeding becomes heavy, more than a period. ii. Incision becomes red and sore, or drains pus. iii. Your temperature is over 100.4 or you have chill. iv. IV site becomes red and swollen (a little ``knot?? is usually OK) v. Persistent nausea and vomiting vi. Persistent constipation or diarrhea vii. Rash or allergic reaction to medications. Discharge Attestations CLINICAL INTERVIEWER Time Spent in Discharge Care*: greater than 30 min Coding Level of Care Code Acute Crime Data Specialist for Taras Iqbal
[2021-02-21] MEDS: pneumococcal (23 valent) SDV 0.5 mL IM (10:34)
[2021-02-21 10:43] VITALS: BP 136/78; PULSE 72; RESP 16; TEMP 36.7; O2SAT 97
[2021-02-21 10:44] VITALS: BP 136/78; PULSE 72; RESP 16; TEMP 36.7; O2SAT 97
== END 2021-02-21 10:47 | disposition home or self-care (01) ==
LOC: OBGYN 10:12
PROVIDERS: Admitting Provider Obstetrics & Gynecology; PCP Internal Medicine; Visit Provider Obstetrics & Gynecology
PROC: 0JQC0ZZ Repair Pelvic Region Subcutaneous Tissue and Fascia, Open Approach (ICD-10-PCS; CPT 57240; principal; 2021-02-20 08:15)
PROC: (CPT 57250; 2021-02-20 08:15)
PROC: (CPT 57288; 2021-02-20 08:15)
DX: N81.10 Cystocele, unspecified (principal); N81.6 Rectocele; N39.3 Stress incontinence (female) (male); E66.01 Morbid (severe) obesity due to excess calories; Z68.31 Body mass index [BMI] 31.0-31.9, adult; Z90.710 Acquired absence of both cervix and uterus; Z87.891 Personal history of nicotine dependence; Z23 Encounter for immunization
CPT/HCPCS: 57260; 57288; 36415; 51798; 80053; 81003; 85025; 85027; 86850; 86900; 90471; 90732; C1713; C1762; G0378; J0690; J1100; J1885; J2250; J2405; J2704; J3010; J7030; J7040

== ENCOUNTER 2021-07-20 16:19 | Emergency (ER) | payer BC, OTHER, SELFPAY ==
[2021-07-20 17:00] VITALS: BP 162/111; PULSE 98; RESP 16; TEMP 36.8; O2SAT 98; BMI 34.4
--- NOTE | 2021-07-20 18:29 | ED_ITS ---
HPI - Wound/Laceration General: Chief Complaint: Wound/Laceration Stated Complaint: L hand lac Time Seen by Provider: 07/20/21 18:06 History of Present Illness: Patient is a 51-year-old female comes to the ED with a laceration to finger on right hand. Patient says she was lifting up a burn barrel and and her fourth digit caught a sharp metal edge on barrel causing laceration to distal pad of fourth digit. Patient is unsure of her last tetanus and would like to get an updated tetanus today. Associated symptoms: Denies chills, fever(s), nausea or vomiting Review of Systems Const: Denies: fever(s), chills or fatigue Eyes: Denies: change in vision or eye discomfort ENMT: Denies: throat pain, odynophagia, nasal discharge or nasal congestion Card: Denies: chest pain, palpitations, edema, swelling of feet/ankles, dyspnea on exertion or orthopnea Resp: Denies: dyspnea, productive cough or non-productive cough GI: Denies: abdominal pain, nausea, vomiting, diarrhea, constipation or hematochezia : Denies: flank pain, dysuria or hematuria Musc: Denies: neck pain, back pain or extremity swelling Skin/Breast: Reports: new lesions (Flap-like laceration at distal pad fourth digit right hand.); Denies: rash Neuro: Denies: headache(s), numbness in extremities or weakness in extremities PFSH ED PFSH: Medical History Aftercare following surgery of the genitourinary system [place] grade 2 cystocele Urinary, incontinence, stress female Family History Mother Cancer Breast cancer Diabetes Hyperlipidemia Hypertension Lung disease COPD Grandmother Cancer Maternal - Colon cancer Hypertension Grandfather Cancer Maternal - Prostate cancer CAD (coronary artery disease) Paternal Hypertension Lung disease COPD Stroke Maternal Father Hypertension Lung disease COPD Denies family history of Clotting disorder Dementia Psychiatric illness Chronic kidney disease (CKD) Suicide Anesthesia complication Bleeding disorder Female Reproductive History: Date of last menstrual period: 02/15/14 Physical Exam Const: COMMON NORMALS: no acute distress, patient oriented x3 and alert GENERAL APPEARANCE: cooperative and comfortable HENMT: COMMON NORMALS: normocephalic HEAD & SCALP: normocephalic MOUTH: Normal oral and palatal mucosa present THROAT: posterior oropharynx normal and uvula midline Neck/C-Spine: COMMON NORMALS: supple GENERAL: Yes normal visual inspection Resp: COMMON NORMALS: normal respiratory effort, No retractions, No use of accessory muscles and clear to auscultation bilaterally AUSCULTATION: clear to auscultation bilaterally Cardio: COMMON NORMALS: regular rate, regular rhythm, S1 normal heart sound present, S2 normal heart sound present, No gallops present (Cardio), No clicks present (Cardio), No murmurs present (Cardio) and Peripheral pulses 2+ throughout RATE: regular rate RHYTHM: regular rhythm HEART SOUNDS: S1 normal heart sound present and S2 normal heart sound present PERIPHERAL PULSES: Peripheral pulses 2+ throughout GI: COMMON NORMALS: Normal to inspection, nondistended, normoactive bowel sounds present, Soft to palpation, non-tender and no masses PALPATION: Yes Soft to palpation : COMMON NORMALS: Yes no CVA tenderness BLADDER/KIDNEY EXAM: Yes no CVA tenderness Back/Pelvis: COMMON NORMALS: no CVA tenderness Extremity: NARRATIVE EXTREMITY EXAM: Right hand?fourth digit?no nailbed or nail damage noted. Patient does have a flap like laceration at distal pad of fourth digit. She has full range of motion. Neurovascular tact. Skin flap does not appear viable so suturing not necessary. Neuro: COMMON NORMALS: patient oriented x3 and moves all extremities SENSORIUM/ORIENTATION: Yes alert Skin: GENERAL SKIN EXAM: dry skin Course Vital Signs: Vital signs: Vital Signs Temperature 98.2 F 07/20/21 17:00 Pulse Rate 98 07/20/21 17:00 Respiratory Rate 16 07/20/21 17:00 Blood Pressure 162/111 07/20/21 17:00 Pulse Oximetry 98 07/20/21 17:00 MDM - Wound/Laceration Medical Decision Making Patient is a 51-year-old female comes to the ED with a laceration to distal pad of fourth digit on right hand. She has a flap-like laceration and flap does not appear viable for suturing. Full range of motion and neurovascular intact. The nurse then irrigated laceration extensive normal saline and beta iodine. Triple antibiotic ointment was then applied on laceration and it was bandaged up. Patient was given updated tetanus here in the ED. She was discharged home with a prophylactic prescription for cephalexin. Return to ED precautions given. Patient understood and agreed with plan. Discharge Plan Discharge Patient Disposition: Home Clinical Impression: Finger laceration Qualifiers: Encounter type: initial encounter Finger: ring finger Damage to nail status: without damage Foreign body presence: without foreign body Laterality: right Qualified Code(s): S61.214A - Laceration without foreign body of right ring finger without damage to nail, initial encounter Condition: Stable Prescriptions: New cephalexin 500 mg capsule 500 mg PO Q6H 4 Days Qty: 16 0RF No Action amlodipine 5 mg tablet 5 mg PO DAILY 0RF ibuprofen 800 mg tablet 800 mg PO TID PRN (Reason: pain) Qty: 60 0RF acetaminophen 325 mg capsule 325 mg PO Q4H PRN (Reason: fever or pain) Qty: 60 0RF Discharge Orders: Discharge ED (Routine); Ordered 07/20/21 Ordered By: Marcos Langley Referrals: Dayron Crane, [Primary Care Provider] - Discharge Diet: Regular Discharge Activity: Increase activity as tolerated Patient Instructions: Finger Laceration (ED) Activity Restrictions/Additional Instructions: Follow-up with medical provider as directed in the next 7 days for reevaluation. Keep laceration site clean daily with soap and water and then apply triple antibiotic ointment on laceration and bandage. You can remove the skin flap in the next couple days. Take medications as prescribed. Return to the ER or your medical provider if condition worsens. Please read and understand discharge instructions. Thank you for choosing [facility] for your healthcare needs today. Please realize this is an emergency room and that we are providing you with a medical screening exam and this may not be complete and all inclusive of all the testing and or work up that you may need to determine your ailment or severity of your illness. It is very important that you follow up as instructed or that you return to the Emergency Department should you have concerns or if your condition changes or worsens in any way. Coding Level of Care Code ED Surveyor Helper Rod for Taras Iqbal
[2021-07-20] MEDS: tetanus-dipt-pertussis 0.5 mL SDV IM (18:33)
[2021-07-20] MEDS: cephALEXin 500 mg Capsule PO (18:33)
== END 2021-07-20 19:25 | disposition home or self-care (01) ==
PROVIDERS: Emergency Provider Physician Assistant; PCP Internal Medicine
DX: S61.214A Laceration without foreign body of right ring finger without damage to nail, initial encounter (principal); W26.8XXA Contact with other sharp object(s), not elsewhere classified, initial encounter; Z23 Encounter for immunization
CPT/HCPCS: 90471; 90715; 99283

== ENCOUNTER → 2021-07-24 16:18 | Outpatient (BNVA) | payer OTHER, SELFPAY | PROVIDERS: PCP Internal Medicine; Visit Provider Internal Medicine Critical Care Medicine | DX: J45.909 Unspecified asthma, uncomplicated (principal); R06.02 Shortness of breath; G47.10 Hypersomnia, unspecified | CPT/HCPCS: 36415; 82785; 86003 ==

== ENCOUNTER 2021-12-25 12:00 | Outpatient (CLI) | payer OTHER, SELFPAY | END 2021-12-25 12:01 | disposition home or self-care (01) | LOC: SLEEP 12-26 14:54 | PROVIDERS: PCP Internal Medicine; Visit Provider Internal Medicine Critical Care Medicine | DX: G47.10 Hypersomnia, unspecified (principal) | CPT/HCPCS: G0399 ==

== ENCOUNTER 2022-01-08 08:26 | Outpatient (CLI) | payer OTHER, SELFPAY ==
--- NOTE | 2022-01-08 08:47 | MM_ITS ---
WS: [id number] BILATERAL SCREENING DIGITAL TOMOSYNTHESIS MAMMOGRAM WITH CAD HISTORY: SCREENING COMPARISON: 02/15/2020 and 10/04/2018 Bilateral CC and MLO views with tomosynthesis and synthetic mammography submitted. Computer aided det ection analyzed. Breast composition: There are scattered areas of fibroglandular density. No suspicious masses, microc alcifications or architectural distortion. MM/[place] [id number] IMPRESSION: BI-RADS: 1-Negative FOLLOW UP: 1 Year Follow-up
== END 2022-01-08 08:27 | disposition home or self-care (01) ==
PROVIDERS: PCP Internal Medicine; Visit Provider Internal Medicine
DX: Z12.31 Encounter for screening mammogram for malignant neoplasm of breast (principal)
CPT/HCPCS: 77063; 77067

== ENCOUNTER 2022-02-12 07:12 | Outpatient (CLI) | payer OTHER, SELFPAY ==
--- NOTE | 2022-02-12 07:15 | CT_ITS ---
WS: [id number] LDCT LUNG CANCER SCREENING HISTORY: Lung cancer screening TECHNIQUE: Axial imaging performed from the apices to 1 cm below the costophrenic angles. Coronal and sagittal reformats are submitted with axial MIP series. All CT scans at [facility] use at least one of these dose optimization techniques: automated exposure control; mA and/or kV adjustment per patient size (includes targeted exams where dose is matched to clinical indication); or iterativ e reconstruction. DLP: 70.91 mGy.cm DIvol: Mean CTDIvol: 1.60 (mGy) COMPARISON: 02/06/2021 Diagnostic quality: Satisfactory Lung Nodules: No pulmonary nodule or mass. Very minimal atelectasis or scar at the lung bases. There is a new area of groundglass attenuation in the anterior inferior RIGHT lower lobe. Diameter approxim ately 3.5 mm. No endobronchial lesion. Lungs: No pneumonia. Heart: Normal size heart. No pericardial effusion. Other findings: None. CT/CT lung screening [id number] IMPRESSION: LUNG-RADS: 3-Probably Benign FOLLOW UP: 6 Month LDCT OTHER FINDINGS (S MODIFIER): None.
== END 2022-02-12 07:13 | disposition home or self-care (01) ==
LOC: RAD 07:12
PROVIDERS: PCP Internal Medicine; Visit Provider Internal Medicine Critical Care Medicine
DX: Z12.2 Encounter for screening for malignant neoplasm of respiratory organs (principal); Z87.891 Personal history of nicotine dependence
CPT/HCPCS: 71271

== ENCOUNTER 2022-02-18 20:00 | Outpatient (CLI) | payer OTHER, SELFPAY | END 2022-02-18 20:01 | disposition home or self-care (01) | LOC: SLEEP 02-19 07:24 | PROVIDERS: PCP Internal Medicine; Visit Provider Internal Medicine Critical Care Medicine | DX: G47.33 Obstructive sleep apnea (adult) (pediatric) (principal) | CPT/HCPCS: 95811 ==

== ENCOUNTER → 2022-03-24 14:00 | Outpatient (BNVA) | payer OTHER, SELFPAY | PROVIDERS: PCP Internal Medicine; Visit Provider Obstetrics & Gynecology | DX: G47.10 Hypersomnia, unspecified (principal); I10 Essential (primary) hypertension | CPT/HCPCS: 83001 ==

== ENCOUNTER 2022-08-18 12:06 | Outpatient (CLI) | payer OTHER, SELFPAY ==
--- NOTE | 2022-08-18 12:00 | CTR_ITS ---
PROCEDURE INFORMATION: Exam: CT Chest Without Contrast; Diagnostic Exam date and time: 08/18/2022 12:16 PM Age: 52 years old Clinical indication: Abnormal findings; Abnormal radiologic exam of lung or chest; Additional info: 6 month f/u from 02/12 ldct TECHNIQUE: Imaging protocol: Diagnostic computed tomography of the chest without contrast. Radiation optimization: All CT scans at this facility use at least one of these dose optimization techniques: automated exposure control; mA and/or kV adjustment per patient size (includes targeted exams where dose is matched to clinical indication); or iterative reconstruction. REPORTING DATA: Count of CT and Cardiac NM exams in prior 12 months: This patient has received [address] and 0 known cardiac nuclear medicine studies in the 12 months prior to the current study. COMPARISON: CT lung screening [id number] 02/12/2022 7:19 AM RADIATION DOSE METRICS: Total DLP (mGy-cm): 456.48 FINDINGS: Lungs: No lung mass, acute pneumonia or pulmonary edema. The right lower lobe ground-glass opacities in the prior comparison exam have resolved in the interval. Pleural spaces: No pleural effusion or pneumothorax. Heart: The heart is not enlarged. No pericardial effusion. Coronary arteries: No calcified coronary artery atherosclerotic plaque visualized. Lymph nodes: No pathologically enlarged lymph nodes. Vasculature: No thoracic aortic aneurysm. Kidneys and ureters: There is a partially visualized exophytic lesion from the anterolateral left kidney measuring at least 2.8 cm in size and with attenuation measurements (25-27 HU) not consistent with a simple cyst. This was not in the imaging volume on the prior comparison exam. Bones/joints: No acute osseous abnormality. Soft tissues: No acute soft tissue abnormality. CT/CT chest wo con [id number] IMPRESSION: 1. Interval resolution of pulmonary ground-glass opacities. Currently no lung mass or acute pulmonary abnormality. 2. However, recommend renal ultrasound to evaluate an indeterminate exophytic lesion off the left kidney, to determine if this is a renal cyst containing debris or a solid mass. COMMENTS: Consistent with the [employer]'s Incidental Findings Committee white paper (J Am Vinay Radiol 2018): Any incidental renal lesion less than 1 cm or classified as too small to characterize, or any incidental cystic renal lesion characterized as simple-appearing, is likely benign. No follow-up imaging is recommended for these lesions per consensus recommendations based on imaging criteria.
== END 2022-08-18 12:07 | disposition home or self-care (01) ==
LOC: RAD 12:08
PROVIDERS: PCP Internal Medicine; Visit Provider Internal Medicine Pulmonary Disease
DX: R91.8 Other nonspecific abnormal finding of lung field (principal)
CPT/HCPCS: 71250

== ENCOUNTER → 2022-09-17 08:54 | Outpatient (BNVA) | payer OTHER, SELFPAY | PROVIDERS: PCP Internal Medicine; Visit Provider Podiatrist Foot & Ankle Surgery | DX: M76.72 Peroneal tendinitis, left leg (principal); M25.572 Pain in left ankle and joints of left foot; M84.372A Stress fracture, left ankle, initial encounter for fracture; X58.XXXA Exposure to other specified factors, initial encounter | CPT/HCPCS: 73630 ==

== ENCOUNTER 2022-09-24 07:45 | Outpatient (CLI) | payer OTHER, SELFPAY ==
--- NOTE | 2022-09-24 07:59 | MR_ITS ---
WS: [id number] MRI ABDOMEN with and without CONTRAST. COMPARISON: Renal ultrasound 08/27/2022 Multiplanar, multisequence imaging is performed with and without contrast. Liver is mildly enlarged extending over length of 17.9 cm. Mild hepatic steatosis is diffuse. No mass . Normal portal vein. No bile duct dilatation. Normal gallbladder. Normal spleen and pancreas. No adr enal mass. Normal RIGHT kidney. No obstruction or mass. LEFT kidney is normal size. There is an exophytic cyst which is nonenhancing from the mid lateral kid princess. Cyst measures 2.5 x 2.2 cm. No nodular or enhancing component. No ascites or adenopathy. MR/MR abdomen wo/w con* [id number] IMPRESSION: 1. Simple LEFT renal cyst measuring 2.5 x 2.2 cm. No solid mass. 2. Mild hepatomegaly and hepatic steatosis. 3. Negative gallbladder.
--- NOTE | 2022-09-24 08:00 | MR_ITS ---
WS: [id number] MRI LEFT ANKLE without CONTRAST. COMPARISON: Radiographs 09/17/2022 Multiplanar, multisequence imaging is performed without contrast. Marker is placed at the area of pain. This marker corresponds to the peroneal tendon sheath. The lita neus longus and brevis appear normal. There is no increase fluid along the tendon sheath and no tendo n tear identified. Normal signal within the Achilles tendon. There is increase fluid in the flexor hallucis longus tendon sheath. Fluid increases just posterior t o the tibiotalar joint. There is a very short superficial tear at the myotendinous insertion. There i s no full-thickness tear. The tendon distal to the myotendinous insertion is normal. The anterior tibial tendon and the flexor digitorum longus are normal. No muscle edema. No marrow fabiola ma or fracture. No osteochondral lesion of the talus. Talofibular ligaments are normal. Deltoid ligam ent is normal. MR/MR ankle LT wo con* [id number] IMPRESSION: 1. Moderate increase fluid in the flexor hallucis longus tendon sheath consist ent with tenosynovitis. There is a very short superficial tear at the myotendin ous insertion of the FHL. 2. No joint effusion. 3. Marker placed at the area of pain corresponds to the peroneal tendons and s jose which are normal. 4. No fracture or marrow edema.
[2022-09-24] MEDS: gadobenate dimeglumine 20 mL vial IV (10:30)
== END 2022-09-24 07:46 | disposition home or self-care (01) ==
PROVIDERS: PCP Internal Medicine; Visit Provider Nurse Practitioner Family
DX: N28.89 Other specified disorders of kidney and ureter (principal); M76.72 Peroneal tendinitis, left leg; M25.572 Pain in left ankle and joints of left foot; M84.373A Stress fracture, unspecified ankle, initial encounter for fracture; S96.012A Strain of muscle and tendon of long flexor muscle of toe at ankle and foot level, left foot, initial encounter; X58.XXXA Exposure to other specified factors, initial encounter; N28.1 Cyst of kidney, acquired; K76.0 Fatty (change of) liver, not elsewhere classified; R16.0 Hepatomegaly, not elsewhere classified
CPT/HCPCS: 73721; 74183; A9577

== ENCOUNTER 2022-10-02 11:10 | Outpatient (CLI) | payer OTHER, SELFPAY | END 2022-10-02 11:11 | disposition home or self-care (01) | LOC: SPT 11:11 | PROVIDERS: PCP Internal Medicine; Visit Provider Podiatrist Foot & Ankle Surgery | DX: M25.572 Pain in left ankle and joints of left foot (principal) | CPT/HCPCS: 97760; L1902 ==

== ENCOUNTER 2022-12-03 15:02 | Outpatient (RCR) | payer OTHER, SELFPAY | END 2022-12-04 23:59 | disposition home or self-care (01) | LOC: SPT 15:02 | PROVIDERS: PCP Podiatrist Foot & Ankle Surgery; Visit Provider Podiatrist Foot & Ankle Surgery | DX: M25.572 Pain in left ankle and joints of left foot (principal) | CPT/HCPCS: 97161 ==

== ENCOUNTER 2022-12-05 06:00 | Outpatient (RCR) | payer OTHER, SELFPAY | END 2023-01-03 23:59 | disposition home or self-care (01) | LOC: SPT 06:00 | PROVIDERS: PCP Podiatrist Foot & Ankle Surgery; Visit Provider Podiatrist Foot & Ankle Surgery | DX: M77.8 Other enthesopathies, not elsewhere classified (principal) | CPT/HCPCS: 97110 ==

== ENCOUNTER 2023-08-19 07:56 | Outpatient (CLI) | payer OTHER, SELFPAY ==
--- NOTE | 2023-08-19 08:02 | MM_ITS ---
WS: [id number] BILATERAL SCREENING DIGITAL TOMOSYNTHESIS MAMMOGRAM WITH CAD HISTORY: SCREENING COMPARISON: 01/08/2022 and 02/15/2020 Bilateral CC and MLO views with tomosynthesis and synthetic mammography submitted. Computer aided det ection analyzed. Breast composition: There are scattered areas of fibroglandular density. No suspicious masses, microc alcifications or architectural distortion. MM/[place] [id number] IMPRESSION: BI-RADS: 1-Negative FOLLOW UP: 1 Year Follow-up
== END 2023-08-19 07:57 | disposition home or self-care (01) ==
LOC: RAD 07:56
PROVIDERS: PCP Nurse Practitioner Family; Visit Provider Nurse Practitioner Family
DX: Z12.31 Encounter for screening mammogram for malignant neoplasm of breast (principal)
CPT/HCPCS: 77063; 77067

== ENCOUNTER 2024-05-15 12:08 | Emergency (ER) | payer OTHER, SELFPAY ==
[2024-05-15] VITALS (11 sets, daily range): BP systolic 106–140; BP diastolic 68–93; PULSE 72–170; RESP 12–31; TEMP 36.4; O2SAT 95–98; BMI 25.8
--- NOTE | 2024-05-15 12:14 | ECG_ITS ---
[facility] Test Date: 2024-05-15 Pat Name: Bri Bangura Department: Room: Gender: Female Health Researcher: : 1970 Requested By: Vini Steele Order Number: [id number] Reading MD: CASIE ERWIN Measurements Intervals [place] Rate: 148 P: 0 ND: 0 QRS: 35 QRSD: 98 T: 128 QT: 282 QTc: 443 Interpretive Statements ATRIAL FIBRILLATION WITH RAPID VENTRICULAR RESPONSE NONSPECIFIC ST & T-WAVE ABNORMALITY No previous ECG available for comparison Electronically Signed On 05-15-2024 20:46:49 NEW PATIENT ESCORT by CASIE ERWIN [email or web address] [id number]
[2024-05-15 12:58] LABS: Basophils # 0.1 10^3/uL (0.0-0.1); Basophils % 1.1 %; Eosinophils # 0.3 10^3/uL (0.0-0.8); Eosinophils % 3.4 %; Hematocrit 44.4 % (36-47); Lymphocytes # 2.4 10^3/uL (0.8-4.8); Lymphocytes % 26.6 %; Mean Corpuscular HGB Conc 31.5 g/dL (30-55); Mean Corpuscular Hemoglobin 28.6 pg (27-33); Mean Corpuscular Volume 90.8 fl (85-98); Monocytes # 0.8 10^3/uL (0.2-0.9); Monocytes % 8.9 %; Neutrophils % 59.8 %; Nucleated Red Blood Cells % 0 %; Platelet Count 285 10^3/cmm (157-399); Red Blood Count 4.89 10^6/uL (3.85-5.65); Red Cell Distribution Width 12.6 % (12.1-15.1); White Blood Count 9.19 10^3/uL (3.29-11.43)
--- NOTE | 2024-05-15 12:58 | W.ED.ARRPALP ---
HPI - Arrhythmia/Palpitations General: Chief Complaint: Arrhythmia/Palpitations Stated Complaint: chest pains/irregular heart rate Time Seen by Provider: 05/15/24 12:39 Source: patient Mode of arrival: ambulatory Limitations: no limitations History of Present Illness: This patient made her way to the emergency department as warm because of rapid heart rate. She states that approximately 8 AM this morning she was out walking her dog and stated that she felt little more fatigued than she would expect with such minimal activity. She then went back in the house and took her pulse and found it to be sounding funny to her she had a friend come over and listen to her who suggested she might be having something called atrial fibrillation. She has never had this condition before. Years ago she had what was called palpitations and was put on metoprolol but has never been told she had atrial fibrillation or any other arrhythmia at that time. She has had a prior gastric bypass approximately 14 months ago and dropped approximately 85 pounds and subsequently was taken off the metoprolol. She does not have a history of thyroid dysfunction. She does not have a history of thromboembolic issues. No history of thyroid disease. She is otherwise well takes estrogen replacement but no other chronic medications currently. No known family history of coronary artery disease or arrhythmia. MD complaint: heart racing , skipped beats and irregular heart beat Severity: moderate Context: occurred during rest Associated symptoms: Deny anxiety, nausea or vomiting Related Data Home Medications ?Medication ?Instructions ?Recorded ?Confirmed budesonide-formoterol HFA 80 2 puff inhalation BID 05/15/24 05/15/24 mcg-4.5 mcg/actuation aerosol inhaler (Symbicort) estradiol 1 mg tablet 1 mg PO DAILY 05/15/24 05/15/24 sertraline 25 mg tablet 25 mg PO DAILY 05/15/24 05/15/24 Previous Rx's ?Medication ?Instructions ?Recorded apixaban 5 mg tablet (Eliquis) 5 mg PO BID #60 tabs 05/15/24 diltiazem HCl 120 mg 120 mg PO DAILY #30 caps 05/15/24 capsule,extended release 24 hr, controlled (DILT-XR) Allergies Allergy/AdvReac Type Severity Reaction Status Date / Time aprepitant (From Emend) Allergy Unknown Verified 05/15/24 13:56 fosaprepitant (From Emend) Allergy Unknown Verified 05/15/24 13:56 meperidine (From Demerol) Allergy Vomiting Verified 05/15/24 13:56 Review of Systems Const: Denies: fever(s) or chills Eyes: Denies: change in vision ENMT: Denies: throat pain, odynophagia, nasal discharge or nasal congestion Card: Reports: palpitations and irregular heart rhythm; Denies: chest pain, dyspnea on exertion or orthopnea Resp: Denies: dyspnea, productive cough or non-productive cough GI: Denies: abdominal pain, nausea, vomiting or diarrhea : Denies: flank pain, difficulty voiding, dysuria or urinary frequency Musc: Denies: neck pain, back pain, extremity pain or extremity swelling Skin/Breast: Denies: rash Neuro: Denies: headache(s), numbness in extremities or weakness in extremities Psych: Denies: anxiety, depression or mood swings [facility] ED PFSH: Medical History Hypertension History of ectopic x2, surgery to remove. Patient states tube spared. Aftercare following surgery of the genitourinary system Hendley-Walker grade 2 cystocele Urinary, incontinence, stress female Surgical History History of tonsillectomy and adenoidectomy History of laparoscopic-assisted vaginal hysterectomy About 2016, Dr. Bautista at [facility]. H/O bladder repair surgery 02/20/2021- anterior colporrhaphy augmented with allograft, single incision mid urethral sling, posterior colporrhaphy and cystoscopy performed by Dr. Erickson at [facility] Family History Mother Cancer Breast cancer Diabetes Hyperlipidemia Hypertension Lung disease COPD Grandmother Cancer Maternal - Colon cancer Hypertension Grandfather Cancer Maternal - Prostate cancer CAD (coronary artery disease) Paternal Hypertension Lung disease COPD Stroke Maternal Father Hypertension Lung disease COPD Denies family history of Clotting disorder Dementia Psychiatric illness Chronic kidney disease (CKD) Suicide Anesthesia complication Bleeding disorder Social History Smoking and tobacco/nicotine status: former use of tobacco/nicotine Quit status (tobacco/nicotine): has quit using Year quit tobacco: 03/2019 Former quit date comment: 1.5 ppd X 30 years Physical Exam Narrative: EXAM NARRATIVE: She appears to be comfortable and in no acute distress able to answer questions in a goal-directed fashion. Const: COMMON NORMALS: patient oriented x3 GENERAL APPEARANCE: cooperative and comfortable HENMT: COMMON NORMALS: normocephalic, Normal nasal mucous membranes and turbinates present, moist oral mucous membranes and oropharynx normal HEAD & SCALP: normocephalic NOSE: Normal nasal mucous membranes and turbinates present Eye: COMMON NORMALS: Equal, round and reactive pupils present and conjunctivae normal CONJUNCTIVA: Yes conjunctivae normal PUPIL: Yes Equal, round and reactive pupils present Neck/C-Spine: COMMON NORMALS: full ROM, no lymphadenopathy and Thyroid normal THYROID: Thyroid normal Chest: COMMONS NORMALS: normal inspection of the chest Resp: COMMON NORMALS: normal respiratory effort, No use of accessory muscles and clear to auscultation bilaterally AUSCULTATION: clear to auscultation bilaterally Cardio: COMMON NORMALS: Peripheral pulses 2+ throughout RATE: tachycardic RHYTHM: abnormal rhythm irregularly irregular PERIPHERAL PULSES: Peripheral pulses 2+ throughout GI: COMMON NORMALS: Normal to inspection, nondistended, normoactive bowel sounds present, Soft to palpation and non-tender PALPATION: Yes Soft to palpation : COMMON NORMALS: Yes no CVA tenderness BLADDER/KIDNEY EXAM: Yes no CVA tenderness Back/Pelvis: COMMON NORMALS: no CVA tenderness, thoracic and lumbar spine normal to inspection, no thoracic nor lumbar tenderness and thoraco-lumbar ROM normal Extremity: COMMON NORMALS: normal to inspection, capillary refill normal, no calf tenderness and no pedal edema Neuro: COMMON NORMALS: patient oriented x3, moves all extremities, no focal motor deficits and no sensory deficits noted Psych: COMMON NORMALS: mental status grossly normal Skin: COMMON NORMALS: no rashes or lesions noted, no wounds and turgor normal GENERAL SKIN EXAM: no rashes or lesions noted and turgor normal Course Reevaluation(s): Reevaluation #1: Ventricular rate is controlled after a single IV dose of Cardizem. Will follow-up with the oral dose. Also discussed with cardiology. She remained stable with controlled vital signs heart rate blood pressure etc. Time: 14:43 Consultations: Consultation #1: Discussed with consulting authorization specialist regarding their preference on management. There preference is to continue with rate control, antiplatelet medications with DOAC and they will follow her up in the clinic after period time for a ROSALINDA and cardioversion. Time: 14:43 Vital Signs: Vital signs: Vital Signs Temperature 97.6 F 05/15/24 12:10 Pulse Rate 72 05/15/24 14:15 Respiratory Rate 18 05/15/24 14:15 Blood Pressure 120/68 05/15/24 14:15 Pulse Oximetry 97 05/15/24 14:15 Oxygen Delivery Me thod Room Air 05/15/24 12:46 MDM - Arrhythmia/Palpitations Medical Decision Making This patient presented to the emergency department as noted above with rapid heart rate likely due to atrial fibrillation. No prior history of same although the she did have a history of palpitations in the past. Her clinical exam revealed a underlying atrial fibrillation with a rapid ventricular response. Her clinical exam was otherwise unconcerning. She was given IV fluids, IV magnesium while awaiting other studies. Her resting EKG did not reveal any ischemic changes, her lecture lites were normal, thyroid studies were normal. She received a single dose of IV diltiazem which controlled her ventricular rate. Discussed with local authorization specialist regarding their preference and they prefer rate control anticoagulation and later cardioversion. Patient remained stable with normal vital signs including blood pressure etc. She seeks her care at [facility] and so she was given a contact of Marcos Wells MD authorization specialist to follow-up in a number in the next 2 to 3 weeks for reevaluation potential ROSALINDA and cardioversion. In the interim she has been started on diltiazem for rate control and Eliquis for stroke risk reduction. She voiced understanding and was appreciative of care. Lab Data I reviewed the patient's lab results. 05/15/24 12:44 05/15/24 12:44 Laboratory Results WBC 9.19 10^3/uL (3.29-11.43) 05/15/24 12:44 RBC 4.89 10^6/uL (3.85-5.65) 05/15/24 12:44 Hgb 14.00 g/dL (11.27-16.99) 05/15/24 12:44 Hct 44.4 % (36-47) 05/15/24 12:44 MCV 90.8 fl (85-98) 05/15/24 12:44 MCH 28.6 pg (27-33) 05/15/24 12:44 MCHC 31.5 g/dL (30-55) 05/15/24 12:44 RDW 12.6 % (12.1-15.1) 05/15/24 12:44 Plt Count 285 10^3/cmm (157-399) 05/15/24 12:44 MPV 10.0 fL (7.4-10.4) 05/15/24 12:44 Neut % (Auto) 59.8 % 05/15/24 12:44 Lymph % (Auto) 26.6 % 05/15/24 12:44 [place] % (Auto) 8.9 % 05/15/24 12:44 Eos % (Auto) 3.4 % 05/15/24 12:44 Baso % (Auto) 1.1 % 05/15/24 12:44 Neut # (Auto) 5.50 10^3/uL (1.8-7.7) 05/15/24 12:44 Lymph # (Auto) 2.4 10^3/uL (0.8-4.8) 05/15/24 12:44 [place] # (Auto) 0.8 10^3/uL (0.2-0.9) 05/15/24 12:44 Eos # (Auto) 0.3 10^3/uL (0.0-0.8) 05/15/24 12:44 Baso # (Auto) 0.1 10^3/uL (0.0-0.1) 05/15/24 12:44 Nucleated RBC % (auto) 0 % 05/15/24 12:44 Nucleated RBCs # 0.0 /100WBC 05/15/24 12:44 Sodium 143 mmol/L (136-145) 05/15/24 12:44 Potassium 3.8 mmol/L (3.5-5.1) 05/15/24 12:44 Chloride 107 mmol/L (98-107) 05/15/24 12:44 Carbon Dioxide 26 mmol/L (22-29) 05/15/24 12:44 Anion Gap 13.8 (5-19) 05/15/24 12:44 BUN 11 mg/dL (6-20) 05/15/24 12:44 Creatinine 1.1 mg/dL (0.5-0.9) H 05/15/24 12:44 GFR Calculation 51.8 mL/min (90-130) L 05/15/24 12:44 Glucose 95 mg/dL (65-115) 05/15/24 12:44 Calculated Osmolality 295 mOsm/kg (285-295) 05/15/24 12:44 Calcium 9.1 mg/dL (8.5-10.5) 05/15/24 12:44 Magnesium 2.2 mg/dL (1.7-2.3) 05/15/24 12:44 Total Bilirubin 0.2 mg/dL (0.15-1.2) 05/15/24 12:44 AST 15 U/L (0-32) 05/15/24 12:44 ALT 21 U/L (0-33) 05/15/24 12:44 Alkaline Phosphatase 129 U/L (35-105) H 05/15/24 12:44 Total Protein 6.6 g/dL (6.6-8.7) 05/15/24 12:44 Albumin 4.0 g/dL (3.5-5.2) 05/15/24 12:44 Globulin 2.6 g/dL (1.3-4.6) 05/15/24 12:44 TSH 2.33 uIU/mL (0.27-4.20) 05/15/24 12:44 All radiology interpretation(s) finalized by discharge EKG Data EKG 1: I personally reviewed and interpreted this EKG as follows: Interpretation: Contemporaneous review of resting EKG reveals a rapid ventricular rate consistent with atrial fibrillation with rapid ventricular response. She has some nonspecific ST-T wave changes laterally. Previous electrocardiograms from 2020 at this facility reveal she was in sinus rhythm at that time. Discharge Plan Discharge Patient Disposition: Home Clinical Impression: Atrial fibrillation, new onset Condition: Stable Prescriptions: New diltiazem HCl [DILT-XR] 120 mg capsule,ext.rel 24h degradable 120 mg PO DAILY Qty: 30 2RF Eliquis 5 mg tablet 5 mg PO BID Qty: 60 2RF No Action sertraline 25 mg tablet 25 mg PO DAILY budesonide-formoterol [Symbicort] 80-4.5 mcg/actuation HFA aerosol inhaler 2 puff INHALATION BID estradiol 1 mg tablet 1 mg PO DAILY Rx Instructions: TAKE 1 TABLET BY MOUTH ONCE DAILY FOR HRT Discharge Orders: Discharge ED (Routine); Ordered 05/15/24 Ordered By: Vini Steele Referrals: Margot Valencia FNP [Primary Care Provider] - Discharge Diet: Usual diet Discharge Activity: Resume usual activity Patient Instructions: Opioid Safety, Pain Management Activity Restrictions/Additional Instructions: As we discussed you have a condition called atrial fibrillation which is an irregular heartbeat. We have provided 2 prescriptions 1 for diltiazem which is a medication which will help control your heart rate. The second medication is Eliquis which is a blood thinning medication will help to reduce your stroke risk as a result of your atrial fibrillation. As you requested a point of contact and [employer] system the authorization specialist is Marcos Wells MD at the [facility] heart [address] his phone number is [phone]. We recommend calling Dr. Wells's office on Thursday to arrange follow-up. If it anytime he have it develop symptoms of shortness of breath, rapid heart rate or other concerning symptoms that might include chest pain etc. reached return to this or the nearest emergency department for reevaluation. Print Language: Croatian Coding Level of Care Code ED Machinist Mechanic for Taras Iqbal
[2024-05-15] MEDS: magnesium sulfate premix 2 GM/50 ML PIGGYBACK IV (13:15)
[2024-05-15 13:23] LABS: Alanine Aminotransferase 21 U/L (0-33); Alkaline Phosphatase 129 U/L (35-105); Anion Gap 13.8 (5-19); Aspartate Amino Transferase 15 U/L (0-32); Blood Urea Nitrogen 11 mg/dL (6-20); Calcium 9.1 mg/dL (8.5-10.5); Carbon Dioxide 26 mmol/L (22-29); Chloride 107 mmol/L (98-107); Creatinine Clr Calc Pharmacy 65.9668; Globulin 2.6 g/dL (1.3-4.6); Glomerular Filtration Rate 51.8 mL/min (90-130); Glucose 95 mg/dL (65-115); Magnesium 2.2 mg/dL (1.7-2.3); Osmolality Calculated 295 mOsm/kg (285-295); Potassium 3.8 mmol/L (3.5-5.1); Sodium 143 mmol/L (136-145); Thyroid Stimulating Hormone 2.33 uIU/mL (0.27-4.20); Total Bilirubin 0.2 mg/dL (0.15-1.2); Total Protein 6.6 g/dL (6.6-8.7)
[2024-05-15] MEDS: dilTIAZem 5 mg/mL SDV 5 mL 20 MG IVP (13:54)
[2024-05-15] MEDS: dilTIAZem ER (24HR) 120 mg Capsule PO (15:02)
[2024-05-15] MEDS: apixaban 5 mg Tablet PO (15:02)
== END 2024-05-15 15:40 | disposition home or self-care (01) ==
PROVIDERS: Emergency Provider Emergency Medicine; PCP Nurse Practitioner Family
DX: I48.91 Unspecified atrial fibrillation (principal); Z87.891 Personal history of nicotine dependence; I10 Essential (primary) hypertension
CPT/HCPCS: 80053; 83735; 84443; 85025; 93005; 96374; 96375; 99284; J3475; J3490